=== PATIENT | male | born 1990 | race African-American/Black ===

== ENCOUNTER 2020-06-15 16:25 | Emergency (ER) | payer MEDICAID ==
[~2020-06-15] VITALS: Ht 180.3 cm; Wt 73.0 kg
[~2020-06-15 16:25] MED LIST: TAMS-11 MT
[2020-06-15] MEDS ORDERED: CEPH500T MT (17:37)
[2020-06-15] MEDS ORDERED: IBUP-2029 MT (17:37)
[2020-06-15] MEDS ORDERED: IBUPROFEN 600MG TABLET PO ONE (17:45)
[2020-06-15 17:54] VITALS: BP 129/77
== END 2020-06-15 17:55 | disposition home or self-care (01) ==
LOC: ER 16:45
DX: L03.011 Cellulitis of right finger (principal); F12.10 Cannabis abuse, uncomplicated; E11.9 Type 2 diabetes mellitus without complications
CPT/HCPCS: 82962; 99283